=== PATIENT | female | born 1985 | race Caucasian/White ===

== ENCOUNTER 2019-07-05 18:47 | Emergency (ER) | payer OTHER ==
[~2019-07-05] VITALS: Ht 165.1 cm; Wt 63.5 kg
[2019-07-05] MEDS ORDERED: ONDA4ODT MM (20:01)
[2019-07-05] MEDS ORDERED: TRAM50 PO (20:01)
[2019-07-05] MEDS ORDERED: Keflex500 MG PO (20:01)
== END 2019-07-05 20:25 | disposition home or self-care (01) ==
LOC: ER 18:47
DX: S61.012A Laceration without foreign body of left thumb without damage to nail, initial encounter (principal); K21.9 Gastro-esophageal reflux disease without esophagitis; Z88.5 Allergy status to narcotic agent; Z23 Encounter for immunization; W27.8XXA Contact with other nonpowered hand tool, initial encounter
CPT/HCPCS: 12002; 90471; 90714; 99282-25; A9270-GY